=== PATIENT | female | born 1955 | race Caucasian/White ===

== ENCOUNTER 2023-04-09 05:54 | Observation (INO) ==
[2023-04-09 06:36] LABS: ABS Eosinophils 0.1 10^3/uL (0.0-0.5); ABS Lymphocytes 0.7 10^3/uL (1.0-4.8); ABS Monocytes 0.7 10^3/uL (0.0-0.9); ABS Neutrophils 8.9 10^3/uL (1.5-7.6); Eosinophil % 1.3 %; Hematocrit 43.7 % (35-45); Hemoglobin 14.7 g/dL (11.5-14.3); Lymphocyte % 7.1 %; Mean Corpuscular Hemoglobin 28.8 pg (27-33); Mean Corpuscular Hgb Conc 33.8 g/dL (31-36); Mean Corpuscular Volume 85.3 fL (80-97); Mean Platelet Volume 8.1 fL (7.5-11.2); Platelet Count 268 10^3/uL (150-450); Red Blood Count 5.12 10^6/uL (3.63-4.92); Red Cell Distribution Width 16.6 % (12-17); White Blood Count 10.5 10^3/uL (3.8-11.8)
[2023-04-09 06:39] LABS: INR 1.3 (0.83-1.13)
[2023-04-09 06:48] LABS: Albumin 4.5 g/dL (3.2-5.2); Albumin/Globulin Ratio 1.3 (1-3); Calcium 9.7 mg/dL (8.6-10.3); Creatinine, Serum 0.95 mg/dL (0.51-0.95); Globulin 3.4 g/dL (2-4); Potassium 3.7 mmol/L (3.5-5.0); Total Bilirubin 0.9 mg/dL (0.2-1.0); Total Protein 7.9 g/dL (6.4-8.9); eGFR CKD-EPI 64.9 (>60)
[2023-04-09 08:52] LABS: High Sensitivity Troponin 1 Hr 19 pg/mL (<15)
[2023-04-09] MEDS: Iohexol 350 (CONTRAST) 500 ML MDV IV ONE (09:07)
[2023-04-09] MEDS: Labetalol IV 5 MG/ML 20 ml VIAL IV PUSH ONE (11:40)
[2023-04-09] MEDS: Al Hydrox/Mg Hydrox/Simet LIQ 30 ML UDC PO ONE (12:09)
[2023-04-09 18:33] LABS: Magnesium 1.8 mg/dL (1.9-2.7)
[2023-04-10 06:48] LABS: Hematocrit 44.2 % (35-45); Hemoglobin 15.1 g/dL (11.5-14.3); Mean Corpuscular Hemoglobin 29.2 pg (27-33); Mean Corpuscular Hgb Conc 34.1 g/dL (31-36); Mean Corpuscular Volume 85.6 fL (80-97); Mean Platelet Volume 8.1 fL (7.5-11.2); Platelet Count 251 10^3/uL (150-450); Red Blood Count 5.17 10^6/uL (3.63-4.92); Red Cell Distribution Width 16.4 % (12-17); White Blood Count 5.7 10^3/uL (3.8-11.8)
[2023-04-10 06:56] LABS: Calcium 9.6 mg/dL (8.6-10.3); Creatinine, Serum 0.89 mg/dL (0.51-0.95); Magnesium 2.2 mg/dL (1.9-2.7); Potassium 3.8 mmol/L (3.5-5.0); eGFR CKD-EPI 70.1 (>60)
[2023-04-10 07:37] LABS: TSH Ultra Thyroid Stim Horm 2.07 mcIU/mL (0.34-5.60)
[2023-04-11] MEDS ORDERED: Aminophylline 25 MG/ML VIAL ONE (11:00)
[2023-04-11] MEDS ORDERED: Regadenoson 0.4 MG/5 ML SYRINGE ONE (11:00)
[2023-04-11 13:58] VITALS: BP 114/61
== END 2023-04-11 14:16 | disposition home or self-care (01) ==
LOC: ED 05:54 → EDHOLD 05:54 → SUATTDRO 13:16 → MEDTELE 14:49
PROVIDERS: ADMIT Internal Medicine; ATTEND Internal Medicine

== ENCOUNTER 2023-04-17 23:28 | Observation (INO) ==
[2023-04-18 00:14] LABS: ABS Basophils 0.1 10^3/uL (0.0-0.1); ABS Eosinophils 0.4 10^3/uL (0.0-0.5); ABS Lymphocytes 1.8 10^3/uL (1.0-4.8); ABS Monocytes 0.9 10^3/uL (0.0-0.9); ABS Nucleated RBC 0.01 10^3/ul; Eosinophil % 3.3 %; Hematocrit 42.5 % (35-45); Hemoglobin 14.7 g/dL (11.5-14.3); Mean Corpuscular Hemoglobin 29.4 pg (27-33); Mean Corpuscular Hgb Conc 34.7 g/dL (31-36); Mean Corpuscular Volume 84.8 fL (80-97); Mean Platelet Volume 8.1 fL (7.5-11.2); Nucleated Red Blood Cells % 0.1 %/100WBC (0.0-0.8); Platelet Count 338 10^3/uL (150-450); Red Blood Count 5.01 10^6/uL (3.63-4.92); Red Cell Distribution Width 15.9 % (12-17); White Blood Count 11.1 10^3/uL (3.8-11.8)
[2023-04-18 00:22] LABS: Albumin 4.6 g/dL (3.2-5.2); Albumin/Globulin Ratio 1.2 (1-3); Calcium 9.9 mg/dL (8.6-10.3); Creatinine, Serum 1.19 mg/dL (0.51-0.95); Globulin 3.8 g/dL (2-4); Potassium 3.5 mmol/L (3.5-5.0); Total Bilirubin 0.5 mg/dL (0.2-1.0); Total Protein 8.4 g/dL (6.4-8.9); eGFR CKD-EPI 49.5 (>60)
[2023-04-18 00:47] LABS: INR 1.39 (0.83-1.13)
[2023-04-18 01:42] LABS: High Sensitivity Troponin 1 Hr 11 pg/mL (<15)
[2023-04-18] MEDS ORDERED: hydrALAZINE 20 mg/ml 1 ML Vial IV IV SLOW PU PRN (04:06)
[2023-04-18] MEDS ORDERED: Morphine 2 MG/ML SYRINGE IV PRN (04:08)
[2023-04-18] MEDS: NS 0.9% 1000 ml BAG 1,000 ML IV SCH (04:52)
[2023-04-18] MEDS ORDERED: Enoxaparin 40 MG/0.4 ML SYR SUBCUT SCH (16:00)
[2023-04-19 05:06] LABS: ABS Basophils 0.1 10^3/uL (0.0-0.1); ABS Eosinophils 0.5 10^3/uL (0.0-0.5); ABS Lymphocytes 2.3 10^3/uL (1.0-4.8); ABS Monocytes 0.7 10^3/uL (0.0-0.9); ABS Neutrophils 3.8 10^3/uL (1.5-7.6); ABS Nucleated RBC 0.01 10^3/ul; Eosinophil % 6.6 %; Hematocrit 42.7 % (35-45); Hemoglobin 14.6 g/dL (11.5-14.3); Lymphocyte % 31.3 %; Mean Corpuscular Hemoglobin 29.4 pg (27-33); Mean Corpuscular Hgb Conc 34.2 g/dL (31-36); Mean Platelet Volume 7.6 fL (7.5-11.2); Nucleated Red Blood Cells % 0.1 %/100WBC (0.0-0.8); Platelet Count 316 10^3/uL (150-450); Red Blood Count 4.97 10^6/uL (3.63-4.92); Red Cell Distribution Width 15.9 % (12-17); White Blood Count 7.3 10^3/uL (3.8-11.8)
[2023-04-19 05:22] LABS: Calcium 9.5 mg/dL (8.6-10.3); Creatinine, Serum 0.94 mg/dL (0.51-0.95); Magnesium 2.3 mg/dL (1.9-2.7); Potassium 3.7 mmol/L (3.5-5.0); eGFR CKD-EPI 65.7 (>60)
[2023-04-19 16:58] LABS: HDL Cholesterol 39.8 mg/dL
[2023-04-20] MEDS ORDERED: Sulfur Hexaflouride MICROSPHR 25 MG VIAL ONE (07:57)
[2023-04-20 10:39] VITALS: BP 149/62
== END 2023-04-20 12:15 | disposition home or self-care (01) ==
LOC: ED 23:28 → EDHOLD 23:28 → SUATTDRO 04-18 02:25 → MEDTELE 04-18 14:23
PROVIDERS: ADMIT Internal Medicine; ATTEND Internal Medicine